=== PATIENT | male | born 1970 | race Caucasian/White ===

== ENCOUNTER 2018-07-08 19:51 | Emergency (ER) | payer OTHER ==
[~2018-07-08] VITALS: Ht 177.8 cm; Wt 90.7 kg
--- NOTE | 2018-07-08 20:00 | NUR ---
pt handcuffed and feet shackled accompanied by police.
[2018-07-08] MEDS ORDERED: ACETAMINOPHEN 500 MG TAB (TYLENOL) PO STA (20:25)
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
--- NOTE | 2018-07-08 21:05 | Diagnostic Imaging Report ---
INDICATION: Injury with pain. FINDINGS: Two-view right shoulder shows no fracture or dislocation. The visualized adjacent ribs and pleura are unremarkable. IMPRESSION: No acute-appearing abnormality. Dictated by: Dictated on workstation # [id number]
--- NOTE | 2018-07-08 21:05 | Diagnostic Imaging Report ---
INDICATION: Injury with pain. EXAMINATION: Single view of the chest was obtained. FINDINGS: No lung contusion, pneumothorax or hemothorax. No displaced chest wall fracture deformity. No aspiration or pneumonia. IMPRESSION: No acute or posttraumatic sequelae identified. Dictated by: Dictated on workstation # [id number]
--- NOTE | 2018-07-08 21:23 | Diagnostic Imaging Report ---
PROCEDURE: CT head, face and cervical spine without contrast. TECHNIQUE: Multiple contiguous axial images were obtained through the head, neck and facial bones without the use of intravenous contrast. Sagittal and coronal reformations through the cervical spine and facial bones were also performed. INDICATION: Injury. FINDINGS: CT head: There is no hemorrhage, hydrocephalus, edema, mass or mass effect. No calvarial fracture deformity. Mastoid air cells and middle ear cavities are clear. Basilar cisterns are patent. No sulcal effacement. There are no abnormal extra-axial fluid collections. CT cervical spine: Body heights are maintained, alignment anatomic. The canal is patent. No fracture or paravertebral hematoma. No stenosis. Hyoid and larynx are intact. Visualized apices and thoracic inlet are unremarkable. CT facial bones: There is leftward nasal septal spurring. No septal fracture. The nasal bones are intact. The bony orbits are intact. Anterior and posterior michael of the frontal sinus are intact. The maxillary wall is intact. The pterygoid plates are intact. Mandible and bony temporomandibular joints are unremarkable. No fracture identified. No hemosinus. IMPRESSION: 1. CT head: No hemorrhage, fracture or acute finding. 2. CT cervical spine: No fracture, stenosis or malalignment. 3. CT facial bones: No fracture or hemosinus. Dictated by: Dictated on workstation # [id number]
[2018-07-08 22:08] VITALS: BP 119/77
== END 2018-07-08 22:05 | disposition home or self-care (01) ==
LOC: ER FS 19:53
DX: S06.0X0A Concussion without loss of consciousness, initial encounter (principal); S40.011A Contusion of right shoulder, initial encounter; S80.812A Abrasion, left lower leg, initial encounter; G40.909 Epilepsy, unspecified, not intractable, without status epilepticus; F41.9 Anxiety disorder, unspecified; F32.9 Major depressive disorder, single episode, unspecified; Y04.0XXA Assault by unarmed brawl or fight, initial encounter; Y92.149 Unspecified place in prison as the place of occurrence of the external cause
CPT/HCPCS: 70450; 70486; 71045; 72125; 73030